=== PATIENT | female | born 2000 | race American Indian/Alaskan Native ===

== ENCOUNTER 2021-08-10 08:38 | Emergency (ER) | payer BC, MEDICAID ==
[2021-08-10 08:47] VITALS: BP 117/93
[2021-08-10] MEDS ORDERED: ONDANSETRON 4 MG ODT TAB PO/SL ONE (09:04)
[2021-08-10 10:06] LABS: Basophils % (Auto) 0.4 % (0.0-1.8); Eosinophils % (Auto) 0.1 % (0.0-4.3); Hematocrit 38.4 % (30.3-42.9); Hemoglobin 12.4 gm/dl (10.1-14.3); Lymphocytes # (Auto) 1.7 K/mm3 (1.2-5.4); Lymphocytes % (Auto) 18.1 % (13.4-35.0); Mean Corpuscular HGB Conc 32 % (30-34); Mean Corpuscular Volume 92 fl (79-97); Monocytes # (Auto) 0.3 K/mm3 (0.0-0.8); Monocytes % (Auto) 3.1 % (0.0-7.3); Platelet Count 271 K/mm3 (140-440); Red Cell Distribution Width 12.9 % (13.2-15.2)
[2021-08-10 10:29] LABS: Blood Urea Nitrogen 9 mg/dL (7-17); Calcium 9.5 mg/dL (8.4-10.2); Hemolysis Index 1
[2021-08-10 10:31] LABS: BUN/Creatinine Ratio 23
[2021-08-10] MEDS ORDERED: DICYCLOMINE 20 MG/2 ML INJ IM ONE (11:02)
[2021-08-10] MEDS ORDERED: SODIUM CHLORIDE 0.9% 1000 ML 1,000 ML IV ONE ×2 (11:02→13:01)
--- NOTE | 2021-08-10 11:38 | Emergency Department Report ---
ED N/V/D HPI - General Chief complaint: Abdominal Pain Stated complaint: VOMITING Source: patient Mode of arrival: Ambulatory Limitations: No Limitations - History of Present Illness Initial comments: 21-year-old female presents to the ED complaining vomiting x2 days after eating some shrimp and grits. She has a history of insulin-dependent diabetes. Patient complaining of abdominal cramping x1 day. She states that she ate the shrimp and grits on yesterday and has been vomiting since. Patient states that she has vomited once since arriving to the ED. she states that she is current on her menstrual cycle. Patient denies any dysuria. patient denies any diarrhea at present time. Patient is alert and oriented x3. No acute distress noted. No ill appearance noted MD complaint: vomiting Onset/Timin -: days(s) Description of Vomiting: bilious Associated Abdominal Pain: Yes Location: diffuse Radiation: none Severity: mild Pain Scale: 5 Quality: cramping Consistency: intermittent Improves with: none Worsens with: none Context: possible food poisoning Associated Symptoms: denies other symptoms - Related Data Previous Rx's Medication Instructions Recorded Last Taken Type Dicyclomine [Bentyl] 20 mg PO QID 5 Days #20 tablet 08/10/21 Unknown Rx Promethazine [Phenergan] 25 mg PO Q8HR PRN 15 Days #30 tab 08/10/21 Unknown Rx Sulfamethoxazole/Trimethoprim 1 each PO BID 10 Days #20 tab 08/10/21 Unknown Rx [Bactrim DS TAB] Allergies Allergy/AdvReac Type Severity Reaction Status Date / Time No Known Allergies Allergy Verified 08/10/21 08:48 ED Review of Systems ROS: Stated complaint: VOMITING Other details as noted in HPI Constitutional: denies: chills, fever Eyes: denies: eye pain, eye discharge, vision change ENT: denies: ear pain, throat pain Respiratory: denies: cough, shortness of breath, wheezing Cardiovascular: denies: chest pain, palpitations Endocrine: no symptoms reported Gastrointestinal: vomiting. denies: abdominal pain, nausea, diarrhea Genitourinary: denies: urgency, dysuria, discharge Musculoskeletal: denies: back pain, joint swelling, arthralgia Skin: denies: rash, lesions Neurological: denies: headache, weakness, paresthesias Psychiatric: denies: anxiety, depression Hematological/Lymphatic: denies: easy bleeding, easy bruising ED Past Medical Hx - Past Medical History Hx Diabetes: Yes - Surgical History Additional Surgical History: leg fx - Social History Smoking Status: Never Smoker Substance Use Type: None - Medications Home Medications: Home Medications Medication Instructions Recorded Confirmed Last Taken Type Dicyclomine [Bentyl] 20 mg PO QID 5 Days #20 tablet 08/10/21 Unknown Rx Promethazine [Phenergan] 25 mg PO Q8HR PRN 15 Days #30 tab 08/10/21 Unknown Rx Sulfamethoxazole/Trimethoprim 1 each PO BID 10 Days #20 tab 08/10/21 Unknown Rx [Bactrim DS TAB] ED Physical Exam - General Limitations: No Limitations General appearance: alert, in no apparent distress - Head Head exam: Present: atraumatic, normocephalic - Eye Eye exam: Present: normal appearance - ENT ENT exam: Present: mucous membranes moist - Neck Neck exam: Present: normal inspection - Respiratory Respiratory exam: Present: normal lung sounds bilaterally. Absent: respiratory distress - Cardiovascular Cardiovascular Exam: Present: regular rate, normal rhythm. Absent: systolic murmur, diastolic murmur, rubs, gallop - GI/Abdominal GI/Abdominal exam: Present: soft, normal bowel sounds - Extremities Exam Extremities exam: Present: normal inspection - Back Exam Back exam: Present: normal inspection - Neurological Exam Neurological exam: Present: alert, oriented X3 - Psychiatric Psychiatric exam: Present: normal affect, normal mood - Skin Skin exam: Present: warm, dry, intact, normal color. Absent: rash ED Course Vital Signs 08/10/21 08/10/21 08:42 15:45 Temperature 98.9 F Pulse Rate 74 78 Respiratory 12 16 Rate Blood Pressure 117/93 O2 Sat by Pulse 98 100 Oximetry ED Medical Decision Making - Lab Data Result diagrams: 08/10/21 09:49 08/10/21 09:49 - Medical Decision Making 21-year-old female presents to the ED complaining vomiting x2 days after eating some shrimp and grits. She has a history of insulin-dependent diabetes. Patient complaining of abdominal cramping x1 day. She states that she ate the shrimp and grits on yesterday and has been vomiting since. Patient states that she has vomited once since arriving to the ED. she states that she is current on her menstrual cycle. Patient denies any dysuria. patient denies any diarrhea at present time. Patient is alert and oriented x3. No acute distress noted. No ill appearance noted. Physical examination is unremarkable. She was given Zofran 4 mg IV, Bentyl 20mg IM , normal saline 2l via Iv . Rocephin 1 gm given IM. Patient able to tolerate fluids at time of discharge. Patient lab pertinent for UTI. Ruled out DKA. Abnormal Lab Results 08/10/21 08/10/21 08/10/21 09:49 09:49 10:41 WBC 9.5 RBC 4.20 Hgb 12.4 Hct 38.4 MCV 92 MCH 30 MCHC 32 RDW 12.9 L Plt Count 271 Lymph % (Auto) 18.1 [place] % (Auto) 3.1 Eos % (Auto) 0.1 Baso % (Auto) 0.4 Lymph # (Auto) 1.7 [place] # (Auto) 0.3 Eos # (Auto) 0.0 Baso # (Auto) 0.0 Seg Neutrophils % 78.3 H Seg Neutrophils # 7.4 VBG pH Sodium 137 Potassium 3.9 Chloride 103.2 Carbon Dioxide 20 L Anion Gap 18 BUN 9 Creatinine 0.4 L Estimated GFR > 60 BUN/Creatinine Ratio 23 Glucose 329 H POC Glucose Calcium 9.5 Amylase 80 Lipase 10 L HCG, Quant < 2 Urine Color Urine Turbidity Urine pH Ur Specific [place] Urine Protein Urine Glucose (UA) Urine Ketones Urine Blood Urine Nitrite Urine Bilirubin Urine Urobilinogen Ur Leukocyte Esterase Urine WBC (Auto) Urine RBC (Auto) U Epithel Cells (Auto) Urine WBC Clumps 08/10/21 08/10/21 08/10/21 12:24 14:14 Unknown WBC RBC Hgb Hct MCV MCH MCHC RDW Plt Count Lymph % (Auto) [place] % (Auto) Eos % (Auto) Baso % (Auto) Lymph # (Auto) [place] # (Auto) Eos # (Auto) Baso # (Auto) Seg Neutrophils % Seg Neutrophils # VBG pH 7.288 L Sodium Potassium Chloride Carbon Dioxide Anion Gap BUN Creatinine Estimated GFR BUN/Creatinine Ratio Glucose POC Glucose 257 H Calcium Amylase Lipase HCG, Quant Urine Color Red Urine Turbidity Cloudy Urine pH 8.0 H Ur Specific [place] 1.029 Urine Protein 100 mg/dl Urine Glucose (UA) >=500 Urine Ketones 80 Urine Blood Large A Urine Nitrite Negative Urine Bilirubin Negative Urine Urobilinogen 0.0 Ur Leukocyte Esterase Negative Urine WBC (Auto) > 182.0 H Urine RBC (Auto) > 182.0 U Epithel Cells (Auto) 16.0 H Urine WBC Clumps 2+ Rechecked the patient is resting quietly quietly and comfortable and feeling better. I discussed the results of diagnostic study, my clinical impression and the plan for further treatment with the patient. Patient agrees with plan and discharge at this present time. All question addressed. I have given the patient instruction regarding a diagnosis ,expectation ,follow- up and return precaution. I explained to the patient that emergent condition may arise and to return to the ED for new worsen and any new persisting condition. I have explained the importance of following up with the primary care physician or referral physician listed below has instructed. The patient verbalized understanding of discharge instruction. Critical care attestation.: If time is entered above; I have spent that time in minutes in the direct care of this critically ill patient, excluding procedure time. ED Disposition Clinical Impression: Urinary tract infection Qualifiers: Urinary tract infection type: site unspecified Hematuria presence: with hematuria Qualified Code(s): N39.0 - Urinary tract infection, site not specified Disposition: 01 HOME / SELF CARE / HOMELESS Is pt being admited?: No Does the pt Need Aspirin: No Condition: Stable Instructions: Urinary Tract Infection, Adult, [id number], Abdominal Pain (ED) Additional Instructions: Take medication as prescribed Return to ED for any worsening symptom Prescriptions: Sulfamethoxazole/Trimethoprim [Bactrim DS TAB] 1 each PO BID 10 Days #20 tab Dicyclomine [Bentyl] 20 mg PO QID 5 Days #20 tablet Promethazine [Phenergan] 25 mg PO Q8HR PRN 15 Days #30 tab PRN Reason: Nausea Referrals: PRIMARY CARE, [Primary Care Provider] - 3-5 Days [facility] [Provider Group] - 3-5 Days Forms: Work/School Release Form(ED) Time of Disposition: 15:26
[2021-08-10 12:51] LABS: Color,Urine Red (Yellow)
[2021-08-10 12:52] LABS: Bilirubin,Urine Negative (Negative); Blood,Urine Large (Negative)
[2021-08-10 13:04] LABS: RBC,Urine > 182.0 /HPF (0.0-6.0); WBC,Urine > 182.0 /HPF (0.0-6.0)
[2021-08-10] MEDS ORDERED: cefTRIAXone/NS 1 GM/50 ML 1 GM/50 ML BAG IV ONE (13:49)
[2021-08-10] MEDS ORDERED: LIDOCAINE-MPF (1%) 10 MG/1 ML VIAL 5 ML INFILTRATI ONE (13:51)
[2021-08-10] MEDS ORDERED: ONDANSETRON 4 MG/2 ML INJ IV ONE (14:07)
== END 2021-08-10 15:45 | disposition home or self-care (01) ==
LOC: ED 08:38
DX: N39.0 Urinary tract infection, site not specified (principal); E11.9 Type 2 diabetes mellitus without complications; Z79.899 Other long term (current) drug therapy
CPT/HCPCS: 36415; 80048; 81001; 82150; 82805; 82962; 83690; 84702; 85025; 96361; 96372; 96374; 99284; J0500; J0696; J2405; J3490; J7030; Q0162

== ENCOUNTER 2021-08-12 05:50 | Emergency (ER) | payer BC, MEDICAID ==
[2021-08-12 06:27] VITALS: BP 153/82
[2021-08-12 12:18] LABS: Basophils # (Auto) 0.1 K/mm3 (0.0-0.1); Basophils % (Auto) 0.4 % (0.0-1.8); Hematocrit 37.5 % (30.3-42.9); Hemoglobin 12.3 gm/dl (10.1-14.3); Lymphocytes # (Auto) 2.7 K/mm3 (1.2-5.4); Lymphocytes % (Auto) 19.6 % (13.4-35.0); Mean Corpuscular HGB Conc 33 % (30-34); Mean Corpuscular Volume 90 fl (79-97); Monocytes # (Auto) 0.8 K/mm3 (0.0-0.8); Monocytes % (Auto) 5.5 % (0.0-7.3); Platelet Count 296 K/mm3 (140-440); Red Blood Count 4.18 M/mm3 (3.65-5.03); Red Cell Distribution Width 13.1 % (13.2-15.2)
[2021-08-12 12:38] LABS: Alanine Aminotransferase 16 units/L (7-56); Albumin 4.7 g/dL (3.9-5); Blood Urea Nitrogen 10 mg/dL (7-17); Calcium 9.4 mg/dL (8.4-10.2); Hemolysis Index 6
[2021-08-12 12:41] LABS: BUN/Creatinine Ratio 20
[2021-08-12 15:13] LABS: Bilirubin,Urine NEG (Negative); Blood,Urine LG (Negative); Color,Urine Yellow (Yellow); Urobilinogen,Urine < 2.0 mg/dL (<2.0)
[2021-08-12 15:23] LABS: Mucus,Urine 2+ /HPF
[2021-08-12 15:25] LABS: Protein,Urine <15 mg/dL mg/dL (Negative); RBC,Urine < 1.0 /HPF (0.0-6.0)
== END 2021-08-12 17:21 | disposition left against medical advice (07) ==
LOC: ED 05:50
DX: E11.9 Type 2 diabetes mellitus without complications (principal); Z53.21 Procedure and treatment not carried out due to patient leaving prior to being seen by health care provider
CPT/HCPCS: 36415; 80053; 81001; 82962; 83690; 84702; 85025